=== PATIENT | female | born 2000 | race Caucasian/White ===

== ENCOUNTER 2022-05-16 11:41 | Outpatient (CLI) | payer BC, MEDICAID, SELFPAY ==
[2022-05-16 12:35] LABS: SARS-CoV-2 Ag Negative (Negative)
== END 2022-05-16 11:42 | disposition home or self-care (01) ==
PROVIDERS: PCP Family Medicine; Visit Provider Family Medicine
DX: U07.1 COVID-19 (principal)
CPT/HCPCS: 87426; C9803

== ENCOUNTER 2023-07-24 19:20 | Emergency (ER) | payer BC, MEDICAID, SELFPAY ==
--- NOTE | ~2023-07-24 | XR_ITS ---
EXAMINATION: XR chest 2V DATE: 07/24/2023 19:47 INDICATION: 2 days of cough TECHNIQUE: PA and lateral views of the chest were obtained. COMPARISON: None FINDINGS: Aside nodule in the left midlung zone consistent with old granulomatous disease. No other airspace op acities, pulmonary edema, pleural effusion or pneumothorax. The cardiomediastinal silhouette is urmila l. Mild thoracic spondylosis. Likely cholecystectomy clips in the upper abdomen. IMPRESSION: 1. No acute cardiopulmonary disease. Reviewed, dictated and finalized at location A. OGY PHYSICIAN ASSISTANT
[2023-07-24 19:25] VITALS: O2SAT 98
--- NOTE | 2023-07-24 19:26 | ED.GENADULT ---
HPI - General Adult General Chief complaint: Upper Respiratory Infection Stated complaint: generalized sickness Time Seen by Provider: 07/24/23 19:26 History of Present Illness HPI narrative: Patient is a 23 year old female here with cough and fever. 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 Tonight she was experiencing a fever so her boss sent her home. She came here from there to check for COVID, influenza, RSV before going home to her children. She endorses continued cough with green sputum production. Denies significant shortness of breath. She has had an associated headache. Has not taken anything for her symptoms today. She denies urinary symptoms, diarrhea. She has had multiple sick contacts at the rehab facility with respiratory illnesses. Related Data Home Medications Medication Instructions Recorded Confirmed hydrochlorothiazide 25 mg tablet 25 mg PO DAILY 07/24/23 07/24/23 omeprazole 40 mg capsule,delayed 40 mg PO BID 07/24/23 07/24/23 release Allergies Allergy/AdvReac Type Severity Reaction Status Date / Time pseudoephedrine Allergy Unknown Verified 07/24/23 19:34 [From [facility]] Review of Systems Review of Systems: All systems reviewed & are unremarkable except as noted in HPI and below Exam Narrative: GENERAL: Well-appearing, well-nourished, and in no acute distress. HEAD: Normocephalic, atraumatic. EYES: PERRLA and EOMI. ENT: Nares clear. Mucous membranes moist. NECK: Supple. CHEST: Clear to auscultation. No respiratory distress. HEART: Regular rate and rhythm. Normal peripheral pulses. ABDOMEN: Soft, nontender, nondistended. EXTREMITIES: Normal range of motion. No edema. SKIN: Warm, dry, no rash. NEURO: No focal deficits. Alert and oriented x3. PSYCH: Normal mood and affect. Course Course Emergency Course: Chart review performed. Patient here for generalized sickness . Patient seen and evaluated, non toxic appearing. She is tachycardic and febrile here. Will give tylenol and oral fluids. COVID/Influenza/RSV ordered as well as a CXR. CXR negative for infiltrate. She is positive for influenza A. Discussed risks and benefits of tamiflu, she would like to try taking it. Will send rx to pharmacy. The results of pertinent diagnostic studies and exam findings were discussed. The patient?s provisional diagnosis and plan of care were discussed with the patient and present family. The patient and/or present family expressed understanding of the diagnosis and plan. The nurse was instructed to provide written instructions and appropriate follow-up information. The patient understands their need and responsibility to obtain additional follow-up as instructed. The risks of medications administered and prescribed were discussed with the patient and family present. Medical Decision Making Imaging Data Radiologist's impression: EXAMINATION: XR chest 2V DATE: 07/24/2023 19:47 INDICATION: 2 days of cough TECHNIQUE: PA and lateral views of the chest were obtained. COMPARISON: None FINDINGS: Aside nodule in the left midlung zone consistent with old granulomatous disease. No other airspace opacities, pulmonary edema, pleural effusion or pneumothorax. The cardiomediastinal silhouette is normal. Mild thoracic spondylosis. Likely cholecystectomy clips in the upper abdomen. IMPRESSION: 1. No acute cardiopulmonary disease. Reviewed, dictated and finalized at location A. COUNSELOR Discharge Plan Discharge Clinical Impression: Influenza A Patient Disposition: Home, Self-Care Condition: Stable Instructions: Antibiotic Form, Influenza (ED) Additional Instructions: Take tamiflu as prescribed. Take Tylenol and ibuprofen for fever. Call your primary doctor tomorrow to coordinate close follow up. Return should your symptoms worse
[2023-07-24 19:31] VITALS: BP 145/100; PULSE 117; RESP 18; TEMP 37.8; O2SAT 100
[2023-07-24] MEDS: ACETAMINOPHEN 500 MG TABLET 1000 MG PO (19:43)
[2023-07-24 20:23] LABS: Influenza A QL RT-PCR Positive (Negative); Influenza B QL RT-PCR Negative (Negative); RSV RNA, RT-PCR Negative (Negative); SARS-CoV-2 RNA PCR Negative (Negative)
[2023-07-24 20:32] VITALS: BP 128/82; PULSE 100; RESP 18; TEMP 37.7; O2SAT 97
== END 2023-07-24 20:37 | disposition home or self-care (01) ==
PROVIDERS: Emergency Provider Student in an Organized Health Care Education/Training Program; PCP Family Medicine
DX: J10.1 Influenza due to other identified influenza virus with other respiratory manifestations (principal); Z79.899 Other long term (current) drug therapy; Z20.822 Contact with and (suspected) exposure to COVID-19
CPT/HCPCS: 71046; 87637; 99283

== ENCOUNTER 2023-11-13 00:22 | Emergency (ER) | payer BC, MEDICAID, SELFPAY ==
[2023-11-13] VITALS (7 sets, daily range): BP systolic 130–173; BP diastolic 83–115; PULSE 87–104; RESP 20; TEMP 36.9; O2SAT 100
--- NOTE | 2023-11-13 00:37 | ED.FEMALEGU ---
HPI - Female Genitourinary General Chief complaint: Urogenital-Female Stated complaint: possible miscarriage Time Seen by Provider: 11/13/23 00:25 Source: patient Mode of arrival: ambulatory Limitations: no limitations History of Present Illness HPI Narrative: Patient is a 23-year-old female with 8 weeks and gestational here with passing a large blood clot and some continued bleeding similar to a menstrual cycle. She has no pain. She has been having elevated blood pressure with hypertension with every . She has recurrent back pain associated with the . Patient has an OBGYN follow-up tomorrow. MD elicited complaint: vaginal bleeding, back pain and possible miscarriage Pertinent past history: prior miscarriages Onset (ago): hour(s) (1) Location of symptoms: none Vaginal bleeding: moderate, bright red, clots, POC/tissue ( Questionable) and # pads per hour (1) Exacerbating factors: none Relieving factors: none Associated symptoms: denies other symptoms Treatment prior to arrival: none Sexual activity: Yes Patient : Yes Related Data : 3 Para: 2 Total number of abortions (spontaneous and elective): 2 Home Medications Medication Instructions Recorded Confirmed hydrochlorothiazide 25 mg tablet 25 mg PO DAILY 07/24/23 11/13/23 albuterol sulfate 90 mcg/actuation 2 puff inhalation PRN 11/13/23 11/13/23 aerosol inhaler Allergies Allergy/AdvReac Type Severity Reaction Status Date / Time pseudoephedrine AdvReac Mild Hyperactive Verified 11/13/23 01:29 [From [facility]] Review of Systems Review of Systems: All systems reviewed & are unremarkable except as noted in HPI and below Constitutional: Constitutional: Reports no additional constitutional complaints Eyes: Eyes: Reports no additional eye complaints ENT: Reports system reviewed and no additional complaints, except as documented Cardiovascular: Cardiovascular: Reports no additional cardiovascular complaints Respiratory: Respiratory: Reports no additional respiratory complaints Gastrointestinal: Gastrointestinal: Reports no additional gastrointestinal complaints Genitourinary: Genitourinary: Reports no additional female genitourinary complaints Musculoskeletal: Musculoskeletal: Reports no additional musculoskeletal complaints Integumentary/Breasts: Skin/Breast: Reports system reviewed and no additional complaints, except as docu Neurologic: Reports system reviewed and no additional complaints, except as documented Psychiatric: Psychiatric: Reports no additional psychiatric complaints Endocrine: Endocrine: Reports no additional endocrine complaints Hematologic/Lymphatic: Hematologic/Lymphatic: Reports no additional hematologic/lymphatic complaints Allergic/Immunologic: Allergic/Immunologic: Reports no additional allergic/immunologic complaints Exam Const: General: healthy appearing Nutritional Appearance: well nourished Orientation/consciousness: patient oriented x3 HENMT: Head: normal to inspection Ears: external ears normal Face/Nose/Sinus: Normal external nose present Eyes: Conjunctivae: conjunctivae normal Pupils: Equal, round and reactive pupils present EOM: EOMs intact bilaterally Neck: Neck: normal visual inspection Chest: Chest palpation & inspection: normal inspection of the chest Resp: Effort & Inspection: normal respiratory effort and not labored Auscultation: clear to auscultation bilaterally Cardio: Rate: regular rate Rhythm: regular rhythm Heart sounds: no murmurs GI: Inspection: non-distended GI Palp: Yes Soft to palpation and No Tenderness to palpation present (GI) Auscultation: normal bowel sounds : General: Yes bladder normal to palpation External Female Exam: normal external appearance Speculum Exam - Vagina: normal vaginal discharge Other: Sterile pelvic exam done per manual exam with a high cervix and appears closed; minimal blood on the glove Back/Spine/Pelvi
[2023-11-13] MEDS: LABETALOL HCL INJ 100 MG/20 ML VIAL 10 MG IV PUSH (01:03)
[2023-11-13 01:50] LABS: INR 0.9; Partial Thromboplastin Time 21.9 Sec (23.9-30.70); Prothrombin Time 10.1 Seconds (9.50-12.1)
[2023-11-13 01:54] LABS: Alanine Aminotransferase 17 U/L (14-59); Albumin Level 3.7 g/dL (3.4-5.0); Alkaline Phosphatase 53 U/L (46-116); Anion Gap 13 mmol/L (4-12); Appearance Urine Clear (Clear); Aspartate Amino Transferase 12 U/L (15-37); Bilirubin Urine Negative (Negative); Bilirubin,Total 0.4 mg/dL (0.00-1.00); Blood Urea Nitrogen 11 mg/dL (7-18); Blood Urine 3+ (Negative); Calcium 9.2 mg/dL (8.5-10.1); Carbon Dioxide 27 mmol/L (21-32); Chloride 102 mmol/L (98-108); Color Urine Yellow (Yellow); Estimated CRCL calculation 110 ml/min; Estimated Glomerular Filt Rate > 60; Glucose 94 mg/dL (70-99); Glucose Urine UA Negative (Negative); Ketones Urine Negative (Negative); Leukocyte Esterase Ur Negative LEU/UL (Negative); Nitrate Urine Negative (Negative); Osmolality Calculated 293 mOsm/kg (285-295); Potassium 3.3 mmol/L (3.5-5.1); Protein Urine Trace (Negative); Sodium 142 mmol/L (136-145); Total Protein 7.3 g/dL (6.4-8.2); Urobilinogen Urine 0.2 mg/dL (0.2-1.0); pH Urine 6.5 (5.0-8.0)
[2023-11-13 02:07] LABS: Add Urine Microscopic? YES; Bacteria Urine 1+ /hpf; RBC Urine >100 /hpf (0-2); Squamous Epithelial Cell Urine Moderate /hpf (Few)
[2023-11-13 02:38] LABS: Hematocrit 36.7 % (35.0-49.0); Hemoglobin 12.4 g/dL (12.0-15.0)
[2023-11-13] MEDS: POTASSIUM CHLORIDE 20 MEQ ER TABLET PO (03:15)
== END 2023-11-13 03:17 | disposition home or self-care (01) ==
PROVIDERS: Emergency Provider Emergency Medicine; PCP Family Medicine
DX: O20.0 Threatened abortion (principal); Z3A.08 8 weeks gestation of pregnancy
CPT/HCPCS: 36415; 80053; 81001; 84702; 85014; 85018; 85610; 85730; 86900; 86901; 96374; 99284; A9270

== ENCOUNTER 2023-11-22 17:51 | Emergency (ER) | payer BC, MEDICAID, SELFPAY ==
[2023-11-22] VITALS (12 sets, daily range): BP systolic 126–166; BP diastolic 81–104; PULSE 83–108; RESP 14–25; TEMP 36.2–36.8; O2SAT 98–100
--- NOTE | 2023-11-22 18:16 | ED.GENADULT ---
HPI - General Adult General Chief complaint: Unspecified Stated complaint: HTN IN Time Seen by Provider: 11/22/23 17:55 Source: patient Mode of arrival: ambulatory Limitations: no limitations History of Present Illness HPI narrative: 23 year old female presents to the Emergency Department complaining of elevated blood pressure. Patient has a history of hypertension, initially diagnosed with , but continues afterwards. Patient is 10 weeks at this time. Patient was experiencing some blurred vision, headache while at work at local [employer]. Her blood pressure was checked and noted to be high. Patient presents to Emergency Department. Patient normally takes HCTZ 12.5 mg daily and was recently started on Labetalol. She denies chest pain or shortness of breath. She denies abdominal pains, cramping, vaginal bleeding or discharge. Onset (ago): hour(s) Location: head Radiation: non-radiation Severity: mild Relieving factors: none Exacerbating factors: none Treatments prior to arrival: other (home meds) Related Data Home Medications Medication Instructions Recorded Confirmed hydrochlorothiazide 25 mg tablet 12.5 mg PO DAILY 07/24/23 11/22/23 labetalol 100 mg tablet 100 mg PO BID 11/22/23 11/22/23 Allergies Allergy/AdvReac Type Severity Reaction Status Date / Time pseudoephedrine AdvReac Mild Hyperactive Verified 11/22/23 18:01 [From [facility]] Review of Systems Review of Systems: All systems reviewed & are unremarkable except as noted in HPI and below Constitutional: Constitutional: Reports as per HPI, Denies chills, Denies fever(s), Reports headache(s) and Denies weakness Eyes: Eyes: Reports blurry vision ENT: Reports system reviewed and no additional complaints, except as documented Cardiovascular: Cardiovascular: Reports as per HPI, Denies chest pain and Denies dyspnea Respiratory: Respiratory: Reports as per HPI, Denies chest congestion, Denies cough and Denies dyspnea Gastrointestinal: Gastrointestinal: Reports as per HPI, Denies diarrhea, Denies nausea and Denies vomiting Genitourinary: Genitourinary: Reports no additional female genitourinary complaints Comments: PCP called in Rx for UTI today that she has not picked up yet Musculoskeletal: Musculoskeletal: Reports no additional musculoskeletal complaints, Denies numbness and Denies tingling Integumentary/Breasts: Skin/Breast: Reports system reviewed and no additional complaints, except as docu Neurologic: Reports system reviewed and no additional complaints, except as documented, Denies Neuro-related abnormal movements, Denies Abnormal speech present, Denies confusion, Denies dizziness, Denies syncope, Reports headache(s), Denies lack of coordination, Denies focal weakness, Denies loss of vision, Denies numbness, Denies Other visual disturbances, Denies Sensory deficit (Neuro), Denies tingling, Denies paresthesias and Denies weakness Psychiatric: Psychiatric: Reports no additional psychiatric complaints Endocrine: Endocrine: Reports no additional endocrine complaints Exam Const: General: cooperative, healthy appearing, comfortable, no acute distress, well developed, alert, awake and Physically active Nutritional Appearance: average body habitus Orientation/consciousness: patient oriented x3 Limitations: no limitations HENMT: Head: normal to inspection Face/Nose/Sinus: Normal external nose present Face and sinus: normal facial exam Mouth: Yes Normal oral and palatal mucosa present Eyes: General: appearance normal, both eyes and all related structures Visual Vargas: normal visual vargas by confrontation Alignment and Position: alignment normal Periorbital: periorbital findings normal Eyelids: eyelids normal Conjunctivae: conjunctivae normal Pupils: Equal, round and reactive pupils present EOM: EOMs intact bilaterally Direct Ophthalmoscopy: fundi normal bilaterally Neck: Neck: normal visual inspection, full R
--- NOTE | 2023-11-22 18:26 | PC.NURSE ---
HIV CONSENT FORM OBTAINED AND SIGNED.
[2023-11-22 18:32] LABS: Appearance Urine Clear (Clear); Bilirubin Urine Negative (Negative); Blood Urine Trace-intact (Negative); Color Urine Light Yellow (Yellow); Glucose Urine UA Negative (Negative); Ketones Urine Negative (Negative); Leukocyte Esterase Ur Negative (Negative); Nitrate Urine Negative (Negative); Protein Urine Negative (Negative); Specific Grav Ur 1.025 (1.010-1.020); Urobilinogen Urine 0.2 mg/dL (0.2-1.0)
[2023-11-22 18:38] LABS: Add Urine Microscopic? YES; Bacteria Urine 1+ /hpf; Mucus Urine Rare /lpf; RBC Urine 0-2 /hpf (0-2); Squamous Epithelial Cell Urine Few /hpf (Few); WBC Urine 0-3 /hpf (0-3)
[2023-11-22] MEDS: LABETALOL HCL 50 MG TABLET 100 MG PO (19:17)
== END 2023-11-22 19:23 | disposition home or self-care (01) ==
PROVIDERS: Emergency Provider Emergency Medicine; PCP Family Medicine
DX: O16.1 Unspecified maternal hypertension, first trimester (principal); Z3A.10 10 weeks gestation of pregnancy
CPT/HCPCS: 81001; 99284; A9270